=== PATIENT | female | born 2000 | race Two or more races ===

== ENCOUNTER 2021-06-15 03:48 | Emergency (ER) | payer SELFPAY ==
[~2021-06-15] VITALS: Ht 170.2 cm; Wt 99.8 kg
[2021-06-15] MEDS ORDERED: NALOXONE HCL 0.4 MG/ML VIAL IV ONE (04:15)
[2021-06-15 05:04] VITALS: BP 136/89
[2021-06-15 06:54] LABS: Eosinophils # (auto) 0.5 10 ^3/uL (0-0.8); Hemoglobin 12.5 g/dL (12.2-16.2); Nucleated Red Blood Cells % 0.1 %
[2021-06-15 06:56] LABS: Albumin 3.9 g/dL (3.4-5.0); Calcium 9.6 mg/dL (8.5-10.1); Magnesium 2.5 mg/dL (1.6-2.6); Potassium 3.9 mmol/L (3.5-5.1)
[2021-06-15 06:57] LABS: BUN/Creatinine Ratio 16.4; Basophils # (auto) 0.1 10 ^3/uL (0-0.2); Basophils % (auto) 0.7 % (0.0-2.0); Eosinophils % (auto) 5.5 % (0.0-7.0); Hematocrit 38.7 % (36.0-46.0); Lymphocytes # (auto) 3.5 10 ^3/uL (0.4-5.4); Mean Corpuscular Hemoglobin 23.9 pg (28.0-32.0); Mean Corpuscular Hgb Conc. 32.3 g/dL (32.0-36.0); Mean Corpuscular Volume 73.9 fL (80.0-100.0); Monocytes % (auto) 9.8 % (0.0-12.0); Neutrophils # (auto) 4.7 10 ^3/uL (1.6-8.6); Red Blood Cells 5.23 10^6/uL (4.0-5.20); Red Cell Distribution Width 14.8 % (11.8-14.3); White Blood Cell 9.8 10^3/uL (4.4-10.8)
[2021-06-15 06:59] LABS: Bilirubin, Total 0.6 mg/dL (0.2-1.0)
[2021-06-15 07:00] LABS: Salicylate 2.6 mg/dL (2.8-20.0)
[2021-06-15 07:13] LABS: Acetaminophen < 2.0 ug/mL (10-30)
== END 2021-06-15 06:46 | disposition left against medical advice (07) ==
LOC: ER 03:55
DX: R40.4 Transient alteration of awareness (principal)
CPT/HCPCS: 36415; 80053; 80320; 80329; 83735; 85025; 93005